=== PATIENT | male | born 1945 | race Caucasian/White ===

== ENCOUNTER → 2021-05-21 | Outpatient (CLI) | payer OTHER, MEDICARE, BC ==
--- NOTE | 2021-05-21 15:16 | DIREP ---
PROCEDURE:CHEST 2 VIEWS COMPARISON:None. INDICATIONS:Encounter for general adult medical examination FINDINGS: LUNGS/PLEURA:No significant pulmonary parenchymal abnormalities. No effusions. VASCULATURE:Normal. Unremarkable pulmonary vasculature. CARDIAC:Normal. No cardiac silhouette abnormality or cardiomegaly. MEDIASTINUM:Median sternotomy wires. BONES:Normal. No fracture or visible bony lesion. OTHER:Negative. CONCLUSION:No acute findings. Dictated by: Sonny Choudhary MD on 05/21/2021 at 03:12 PM
== END | disposition home or self-care (01) ==
LOC: RAD 11:54
DX: I10 Essential (primary) hypertension (principal); Z00.00 Encounter for general adult medical examination without abnormal findings
CPT/HCPCS: 71046